=== PATIENT | female | born 1985 | race Caucasian/White ===

== ENCOUNTER 2020-03-03 21:20 | Emergency (ER) | payer BC ==
[~2020-03-03] VITALS: Ht 162.6 cm; Wt 71.2 kg
[2020-03-03 21:24] VITALS: BP_SYST 122
== END 2020-03-03 22:40 | disposition left against medical advice (07) ==
LOC: SED 21:20
DX: S90.871A Other superficial bite of right foot, initial encounter (principal); Z88.0 Allergy status to penicillin; Z88.1 Allergy status to other antibiotic agents; Z88.2 Allergy status to sulfonamides; Z88.6 Allergy status to analgesic agent; W54.0XXA Bitten by dog, initial encounter; Y93.89 Activity, other specified; Y92.89 Other specified places as the place of occurrence of the external cause; Y99.8 Other external cause status
CPT/HCPCS: 99281